=== PATIENT | male | born 2000 | race Caucasian/White ===

== ENCOUNTER 2023-10-07 10:15 | Emergency (ER) | payer OTHER, SELFPAY ==
[2023-10-07 10:21] VITALS: BP 147/83; PULSE 82; RESP 18; TEMP 36.7; O2SAT 100; BMI 27.1
--- NOTE | 2023-10-07 10:37 | ED.WOUNDLAC1 ---
HPI - Wound/Laceration General Chief Complaint: Wound/Laceration Stated Complaint: LACERATION TO NOSE Time Seen by Provider: 10/07/23 10:37 Mode of arrival: walk-in History of Present Illness HPI narrative: 23-year-old male here from work with an injury to his nose. 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 He did hold pressure on it and the bleeding is controlled. He does not have any visual complaints no head or neck injuries. I believe he said his tetanus shots were up-to-date. Related Data Home Medications Medication Instructions Recorded Confirmed No Known Home Medications 10/07/23 10/07/23 Allergies Allergy/AdvReac Type Severity Reaction Status Date / Time latex AdvReac Intermediate Verified 10/07/23 10:21 PFSH PFS Social History Smoking status: Never smoker Exam Narrative Exam Narrative: awake alert pleasant no apparent distress. He has a clean linear laceration from the tip of the nose extending to the right mid no nasal area. No active bleeding at this time. There is no deformity of the nasal bone itself. The rest craniofacial structures are normal he has no other head or neck pain. Constitutional Vital Signs, click to edit/add: Last Vital Signs Temp 98.0 F 10/07/23 10:21 Pulse 82 10/07/23 10:21 Resp 18 10/07/23 10:21 BP 147/83 H 10/07/23 10:21 Pulse Ox 100 10/07/23 10:21 Course Vital Signs Vital signs: Vital Signs Temperature 98.0 F 10/07/23 10:21 Pulse Rate 82 10/07/23 10:21 Respiratory Rate 18 10/07/23 10:21 Blood Pressure 147/83 H 10/07/23 10:21 Pulse Oximetry 100 10/07/23 10:21 Temperature 98.0 F 10/07/23 10:21 Pulse Rate 82 10/07/23 10:21 Respiratory Rate 18 10/07/23 10:21 Blood Pressure 147/83 H 10/07/23 10:21 Pulse Oximetry 100 10/07/23 10:21 MDM - Wound/Laceration MDM Narrative Medical decision making narrative: seizure no. He has a 3 cm clean incisional laceration across the right side of his nose. After lidocaine one percent anesthesia with epinephrine approximately 3 mL were used. Bleeding was controlled. The wound was open and we could see was a deep wound but there is no contamination or foreign bodies in the area. The wound was then reapproximated with 760 simple interrupted nylon sutures. Wound approximation and bleeding were excellent. Wound care sheet was discussed. Discharge Plan Discharge Chief Complaint: Wound/Laceration Clinical Impression: Laceration of nose Patient Disposition: Home, Self-Care Time of Disposition Decision: 11:37 Prescriptions / Home Meds: No Action No Known Home Medications Additional Instructions: sutures out in seven days, applying Steri-Strips at that time. Wound care is discussed Stand Alone Forms: Portal Instructions Referrals: Physician,Non-Staff, MD [Primary Care Provider] - 1 week
--- NOTE | 2023-10-07 10:38 | XR_ITS ---
The [address] [address] Patient Name: KLARISSA MALAVE MRN: [id number] date: 2000 Sex: M Assigned Patient Location: ER Current Patient Location: Accession/Order Number: [id number] Exam Date: 10/07/2023 10:45 Report Date: 10/07/2023 15:32 At the request of: JENNIE HARRY Procedure: XR nasal bones min 3V X-RAY OF THE nasal bones. HISTORY: injury COMPARISON: There are no previous studies available for comparison. TECHNIQUE: 3 views of the nasal bones. FINDINGS: BONE DENSITY: Normal. FRACTURE: No acute fracture. SOFT TISSUES: No radiopaque foreign body. The paranasal sinuses are clear. XR/XR nasal bones min 3V IMPRESSION: No evidence of a nasal bone fracture. Electronically authenticated by: ALFREDITO CHRISTENSEN Date: 10/07/2023 15:32
[2023-10-07] MEDS: LIDOCAINE HCL 1%-EPINEPHRINE 1:100,000 20 ML MDV INJ (11:09)
== END 2023-10-07 12:05 | disposition home or self-care (01) ==
PROVIDERS: Emergency Provider Emergency Medicine Emergency Medical Services
DX: S01.21XA Laceration without foreign body of nose, initial encounter (principal); W22.8XXA Striking against or struck by other objects, initial encounter
CPT/HCPCS: 12013; 70160; 99284